=== PATIENT | female | born 1985 | race Asian ===

== ENCOUNTER 2017-07-01 10:38 | Outpatient (CLI) | payer BC, OTHER ==
[~2017-07-01] VITALS: Ht 165.1 cm; Wt 57.7 kg
[~2017-07-01 10:38] MED LIST: IBUP-1223 PO; NITR100C56 PO; OXYC-302 PO; PREN1TAB56 PO; SENN-87 PO
[2017-07-01 11:01] VITALS: BP 94/51
[2017-07-01 11:05] LABS: PATH.CAST-FLAG NOT PRESENT; SPERM-FLAG NOT PRESENT; SRC-FLAG NOT PRESENT; XTAL-FLAG NOT PRESENT; YLC-FLAG NOT PRESENT
[2017-07-01] MEDS ORDERED: OMEP20TA62 PO (11:45)
[2017-07-01] MEDS ORDERED: FAMO20TA37 PO (11:47)
== END 2017-07-01 12:00 | disposition home or self-care (01) ==
LOC: LDOP 10:38
PROVIDERS: ATTEND Obstetrics & Gynecology
DX: O26.892 Other specified pregnancy related conditions, second trimester (principal); O62.9 Abnormality of forces of labor, unspecified; R19.7 Diarrhea, unspecified; Z3A.24 24 weeks gestation of pregnancy
CPT/HCPCS: 36415; 59025; 81001; 82731; 87086; 99211; G0463

== ENCOUNTER 2017-10-03 02:01 | Inpatient (IN) | payer BC ==
[~2017-10-03] VITALS: Ht 167.6 cm; Wt 65.0 kg
[2017-10-03 01:57] VITALS: BP 114/67
[~2017-10-03 02:01] MED LIST changes: +FAMO20TA37 PO; +OMEP20TA62 PO
[2017-10-03] MEDS ORDERED: OXYTOCIN 30U/ 0.9% NaCL 500ML 500 ML IV ONE (02:12)
[2017-10-03] MEDS ORDERED: OXYTOCIN 30U/ 0.9% NaCL 500ML 500 ML ONE ×2 (02:17→04:07)
[2017-10-03] MEDS ORDERED: NEWBORN KIT ONE (02:17)
[2017-10-03] MEDS ORDERED: LIDOCAINE 1%, 20ML ONE (02:18)
[2017-10-03] MEDS ORDERED: MISOPROSTOL 200 MCG TABLET ONE (02:18)
[2017-10-03] MEDS: LACTATED RINGERS 1,000 ML IV SCH ×3 (02:24→18:12)
[2017-10-03] MEDS ORDERED: FENTANYL PF 100 MCG/2ML IV PRN (02:30)
[2017-10-03] MEDS ORDERED: FENTANYL PF 100 MCG/2ML IVPush PRN (02:30)
[2017-10-03] MEDS ORDERED: ONDANSETRON 2MG/ML, 2ML IVPush PRN (02:30)
[2017-10-03 02:51] LABS: HEMATOCRIT 41.9 % (34.6-47.8); HEMOGLOBIN 14.2 g/dL (11.7-16.4); WHITE BLOOD COUNT 14.2 x10^3/uL (3.4-10)
[2017-10-03] MEDS ORDERED: FENTANYL PF 100 MCG/2ML ONE (03:15)
[2017-10-03] MEDS ORDERED: MISOPROSTOL 200 MCG TABLET PR ONE (04:00)
[2017-10-03] MEDS: OXYTOCIN 30U/ 0.9% NaCL 500ML 500 ML IV SCH ×2 (04:14→14:14)
[2017-10-03] MEDS ORDERED: ONDANSETRON 2MG/ML, 2ML IV PRN (04:30)
[2017-10-03] MEDS ORDERED: OXYTOCIN 10 UNITS/ML, 1ML IM PRN (04:30)
[2017-10-03] MEDS ORDERED: DOCUSATE 100 MG CAPSULE PO PRN (04:30)
[2017-10-03] MEDS ORDERED: CARBOPROST TROMETHAMINE 250 MCG/ML, 1ML IM PRN (04:30)
[2017-10-03] MEDS ORDERED: ACETAMINOPHEN 325 MG TABLET PO PRN (04:30)
[2017-10-03] MEDS ORDERED: HYDROcodone/APAP 5/325 TABLET PO PRN ×2 (04:30)
[2017-10-03] MEDS ORDERED: MISOPROSTOL 200 MCG TABLET PR PRN (04:30)
[2017-10-03] MEDS ORDERED: METHYLERGONOVINE 0.2 MG/ML IM PRN (04:30)
[2017-10-03 05:55] VITALS: BP 109/59
[2017-10-03 07:45] VITALS: BP 103/62
[2017-10-03] MEDS: PRENATAL VIT/IRON/FA 1 EACH TABLET PO SCH (10:16)
[2017-10-03 11:22] VITALS: BP 105/55
[2017-10-03 12:37] LABS: HEMATOCRIT 39.4 % (34.6-47.8); HEMOGLOBIN 13.3 g/dL (11.7-16.4); WHITE BLOOD COUNT 19.2 x10^3/uL (3.4-10)
[2017-10-03 13:13] LABS: DIFF TOTAL CELLS COUNTED 100 CELL DIFF
[2017-10-03 13:17] LABS: VERIFY COUNTS? YES
[2017-10-03 13:18] LABS: ANISOCYTOSIS 1+; LARGE PLATELETS 1+; POLYCHROMASIA 1+
[2017-10-03 16:00] VITALS: BP 113/68
[2017-10-03] MEDS: IBUPROFEN 600 MG TABLET PO PRN (16:07)
[2017-10-03 19:30] VITALS: BP 111/73
[2017-10-04 00:58] VITALS: BP 112/75
[2017-10-04] MEDS: IBUPROFEN 600 MG TABLET PO PRN (04:57)
[2017-10-04] MEDS ORDERED: IBUP-1222 PO (08:13)
[2017-10-04] MEDS ORDERED: HYDR-3240 PO (08:13)
[2017-10-04] MEDS ORDERED: SENN-1 PO (08:14)
[2017-10-04 08:20] VITALS: BP 100/62
[2017-10-04] MEDS: PRENATAL VIT/IRON/FA 1 EACH TABLET PO SCH (09:00)
== END 2017-10-04 11:10 | disposition home or self-care (01) | DRG 775 ==
LOC: LDOP 02:01 → LDIP 02:13 → 2NW 05:22
PROVIDERS: ADMIT Obstetrics & Gynecology; ATTEND Obstetrics & Gynecology
PROC: 10E0XZZ Delivery of Products of Conception, External Approach (ICD-10-PCS; principal; 2017-10-03)
PROC: 0HQ9XZZ Repair Perineum Skin, External Approach (ICD-10-PCS; 2017-10-03)
DX: O70.0 First degree perineal laceration during delivery (principal); Z37.0 Single live birth; Z3A.37 37 weeks gestation of pregnancy
CPT/HCPCS: 36415; 85025; 86850; 86900; J3010; J2590; J7120